=== PATIENT | female | born 1965 ===

== ENCOUNTER 2021-08-06 23:17 | Emergency (ER) | payer OTHER ==
[~2021-08-06] VITALS: Ht 160 cm; Wt 107.5 kg
[2021-08-06] MEDS ORDERED: METFORMIN HCL500 M3 (23:57)
[2021-08-06] MEDS ORDERED: GLIMEPIRIDE2 M1 (23:58)
[2021-08-07] MEDS ORDERED: ORPHENADRINE C100 MG PO (04:41)
[2021-08-07] MEDS ORDERED: MOBIC15 MG PO (04:41)
[2021-08-07] MEDS ORDERED: LOSARTAN POTASS50 MG PO (04:41)
== END 2021-08-07 04:51 ==
LOC: ER 23:17
DX: M62.838 Other muscle spasm (principal); I10 Essential (primary) hypertension; R51.9 Headache, unspecified